=== PATIENT | female | born 1940 | race Caucasian/White ===

== ENCOUNTER 2020-05-30 14:52 | Outpatient (REF) | payer MEDICARE, SELFPAY ==
--- NOTE | ~2020-05-30 | MM_ITS ---
EXAMINATION: MM DIAGNOSTIC DIGITAL BREAST TOMOSYNTHESIS, BILATERAL US DIAGNOSTIC ULTRASOUND BREAST, RIGHT CLINICAL INFORMATION: Pain in fullness mid upper outer right breast. Due for yearly. The lifetime risk of breast cancer based on the Tyrer-Cuzick Model is 2%. COMPARISON: Mammography: 02/15/2016 TECHNIQUE: Digital breast tomosynthesis is performed in both the craniocaudal and mediolateral oblique views along with computer-aided detection (CAD). Synthesized 2D images are generated from the tomosynthesis. Additional right CC view is provided. Ultrasound right breast is targeted to the areas of clinical concern upper outer quadrant. Grayscale imaging and color Doppler are performed without and with harmonics. FINDINGS: The breasts are almost entirely fatty (ACR BI-RADS breast composition Category a). Background fibroglandular and stromal densities are stable. There is no interval mass or architectural abnormality or abnormal calcifications. There is no skin thickening or coarsening of the Tom's ligaments. No axillary adenopathy. No significant changes. Ultrasound demonstrates no cystic or solid mass or architectural abnormality or focal duct ectasia. No skin thickening or edema tracking in soft tissue planes. Results are discussed with the patient at time of visit. MM/MM tomosynthesis diagnostic BI IMPRESSION: 1. No mammographic evidence of malignancy or inflammatory changes. 2. Unremarkable right breast ultrasound.. ASSESSMENT: BI-RADS 1: Negative RECOMMENDATION: 1. Patient should be managed based on the clinical impression. If clinically indicated, further evaluation may be considered with surgical consult. Decision to proceed with biopsy should be based on clinical grounds and degree of clinical concern. 2. Otherwise, routine annual screening mammography. This patient's information was entered into a reminder system with a target due date for their next mammogram.
== END 2020-05-30 14:53 | disposition home or self-care (01) ==
LOC: HO.MAMMO 14:52
PROVIDERS: PCP Internal Medicine Geriatric Medicine; Visit Provider Internal Medicine Geriatric Medicine
DX: N63.11 Unspecified lump in the right breast, upper outer quadrant (principal)
CPT/HCPCS: 76642; 77062; 77066

== ENCOUNTER 2022-10-10 16:03 | Outpatient (REF) | payer MEDICARE, SELFPAY ==
[2022-10-10 18:54] LABS: Anion Gap 12 (12-20); Blood Urea Nitrogen 12 mg/dL (9-16); Calcium 9.3 mg/dL (8.4-10.2); Carbon Dioxide 27 mmol/L (22-29); Chloride 108 mmol/L (96-108); Estimated Glomerular Filt Rate 60; Glucose Random 79 mg/dL (60-115); Potassium 3.6 mmol/L (3.3-5.1); Sodium 143 mmol/L (135-145)
== END 2022-10-10 16:04 | disposition home or self-care (01) ==
LOC: HO.HHCL 16:03
PROVIDERS: Visit Provider Internal Medicine Geriatric Medicine
DX: R73.03 Prediabetes (principal)
CPT/HCPCS: 36415; 80048

== ENCOUNTER 2022-12-10 15:42 | Outpatient (AMB) | payer OTHER, SELFPAY ==
--- NOTE | 2022-12-10 15:46 | MHC.OFFVIS ---
Intake Vital Signs 12/10/22 15:53 Weight 140 lb BP 123/61 Blood Pressure Location Rt brachial Position Sitting Pulse 71 Intake Visit Reasons: Skin nodule on cheek Intake Note: This patient presents for an assessment for skin nodule on cheek. Patient c/o; reports increase in size. [employer] Required: No Accompanied by: Son Allergies naproxen [Naprosyn] Allergy (Unknown, Verified 02/14/19 00:00) Erythromycin Allergy (Unknown, Uncoded 02/14/19 00:00) Medication List - Last Reviewed 12/10/22 by JACKSON Garcia cholecalciferol (vitamin D3) (Vitamin D3) 50 mcg PO DAILY clonazepam 0.5 mg PO DAILY PRN fentanyl 25 mcg/hr 1 patch topical Q3D fluticasone propionate 50 mcg/actuation 1 spray intranasal DAILY oxycodone-acetaminophen 10-325 mg 1 tab PO QID PRN polyethylene glycol 3350 17 grams PO DAILY sertraline 25 mg PO DAILY sumatriptan succinate mg PO HPI Skin nodule on cheek HPI Details [age] year old female referred for a nodule on the cheek. She says that she has had this for about 4 years now. She has had pain on this area. She had wanted this removed in the past but she has had other things done as well because of multiple medical problems. She denies any changes the skin. [facility] Medical History (Updated 12/10/22 @ 16:02 by Edd Snyder MD) Nodule of cheek Chronic pain Surgical History (Updated 12/10/22 @ 15:55 by JACKSON Garcia) History of neck surgery History of back surgery History of section Family History (Updated 12/10/22 @ 15:53 by JACKSON Garcia) Other Cancer Social History Alcohol intake: never Patient Tobacco Use Status: Never used Tobacco Review of Systems Const Denies chills and Denies fever(s) Card Denies chest pain, Denies dyspnea and Reports dyspnea on exertion Resp Denies cough, Denies dyspnea and Reports dyspnea on exertion GI Denies hematochezia and Denies change in bowel habits Denies hematuria Musc Reports abnormal gait, Reports back pain, Reports myalgias, Reports arthralgias and Reports limited range of motion Neuro Reports abnormal gait, Denies focal weakness and Denies convulsions Psych Denies depression and Denies mood swings Physical Exam Const Other: Using a cane to ambulate, has poor balance General: comfortable and no acute distress Orientation/consciousness: patient oriented x3 HEENT Other: Right cheek with subcutaneous nodule, about 1 cm in size, mobile Neck Neck: Yes no lymphadenopathy Resp Auscultation: clear to auscultation bilaterally Cardio Rhythm: regular rhythm GI Palpation (GI): Soft to palpation, nontender and no guarding Neuro General: patient oriented x3 Assessment & Plan Assessment & Plan (1) Nodule of cheek: Code(s): K13.79 - Other lesions of oral mucosa Plan: She has what appears to be a subcutaneous nodule on her right cheek. This is very mobile. She wants this removed. She is very tender on the area so this will need to be done under some form of anesthesia. I explained the technique of excision under anesthesia. Discussed the risks including but not limited to bleeding, infections, poor healing, scar formation, as well as the benefits and alternatives. She says she understands and wants to proceed. Medications: New oxycodone-acetaminophen 10-325 mg 1 tab PO QID PRN clonazepam 0.5 mg PO DAILY PRN sertraline 25 mg PO DAILY sumatriptan succinate mg PO fluticasone propionate 50 mcg/actuation 1 spray intranasal DAILY cholecalciferol (vitamin D3) (Vitamin D3) 50 mcg PO DAILY polyethylene glycol 3350 17 grams PO DAILY fentanyl 25 mcg/hr 1 patch topical Q3D Coding Level of Care Code New Pt Level 3 (23483) Diagnoses Nodule of cheek K13.79
[2022-12-10 15:53] VITALS: BP 123/61; PULSE 71
== END 2022-12-10 16:04 | disposition home or self-care (01) ==
PROVIDERS: PCP Internal Medicine Geriatric Medicine; Visit Provider Surgery
DX: K13.79 Other lesions of oral mucosa (principal)
CPT/HCPCS: 99203

== ENCOUNTER → 2022-12-10 15:42 | Outpatient (BNVA) | payer OTHER, SELFPAY | PROVIDERS: PCP Internal Medicine Geriatric Medicine; Visit Provider Surgery ==

== ENCOUNTER 2022-12-26 09:23 | Day surgery (SDC) | payer OTHER, SELFPAY ==
[2022-12-18 13:24] VITALS: BMI 23.8
--- NOTE | 2022-12-25 10:24 | P.CONAN_ITS ---
Documented by User: Renetta Sandoval NP 12/25/22 10:26 HPI - Anesthesia Eval Consult details Narrative: 82yo F for Right Excision Cheek Mass Fentanyl patch for chronic pain PMFSH Active Problems Active Problems: All Active Problems (Updated 12/18/22 @ 13:24 by Shayna Robbins RN) Nodule of cheek (Acute) Chronic pain (Acute) Past Medical History Medical History (Updated 12/18/22 @ 13:24 by Shayna Robbins RN) Anxiety Migraine Nodule of cheek Chronic pain Family History Family History (Updated 12/10/22 @ 15:53 by JACKSON Garcia) Other Cancer Surgical History Surgical History (Updated 12/18/22 @ 13:24 by Shayna Robbins RN) History of neck surgery History of back surgery History of section Social History Social History (Updated 12/10/22 @ 15:56 by JACKSON Garcia) Household Members Other:: son Are you a primary infant caregiver to a significant other at home: No Do you presently have visiting nurse or other home services: No Alcohol intake: never Patient Tobacco Use Status: Former Tobacco user Quit Date: age 67 Tobacco use type: Cigarette Years Smoked: 20 Use of substances other than those prescribed or required for medical reasons: No Have you been hit, kicked, punched, or otherwise hurt by someone within the past year? If so, by whom?: No Are you DNR?: No Advance Directives Information Provided: Yes (as above noted-brochure mailed) Advance Directives on File: No Recently lost weight without trying: No Eating poorly because of decreased appetite: No Nutrition Risks: Surgical patient >75years Poor oral hygiene: No (upper full & lower partial denture) Meds Allergies Allergy/AdvReac Type Severity Reaction Status Date / Time erythromycin base Allergy Intermediate Hives Verified 12/26/22 10:01 naproxen [Naprosyn] Allergy Mild Stomach Verified 12/26/22 10:01 Upset Home Medications Medication Instructions Recorded Confirmed Last Taken Type cholecalciferol (vitamin D3) 50 50 mcg PO DAILY 12/10/22 12/18/22 Unknown History mcg (2,000 unit) tablet (Vitamin D3) clonazepam 0.5 mg tablet 0.5 mg PO BEDTIME PRN Anxiety 12/10/22 12/18/22 Unknown History fentanyl 25 mcg/hr transdermal 1 patch topical Q3D 12/10/22 12/18/22 12/24/22 History patch fluticasone propionate 50 1 spray intranasal DAILY 12/10/22 12/18/22 Unknown History mcg/actuation nasal spray,suspension oxycodone-acetaminophen 10 mg-325 1 tab PO QID PRN Pain 12/10/22 12/18/22 Unknown History mg tablet polyethylene glycol 3350 17 17 g PO DAILY 12/10/22 12/18/22 Unknown History gram/dose oral powder sertraline 25 mg tablet 25 mg PO DAILY 12/10/22 12/18/22 Unknown History sumatriptan succinate 25 mg tablet 25 mg PO DAILY PRN Migraine 12/10/22 12/18/22 Unknown History Headache Exam Exam Date and Time: December 25, 2022 1024 Height,Weight and Vital Signs: Height 5 ft 4.25 in Weight 63.503 kg Pertinent Lab Results Pertinent Lab Results: Laboratory Tests 06/22/18 10/10/22 16:33 16:05 WBC 9.2 Hgb 14.7 Hct 42.8 Plt Count 182 Sodium 143 Potassium 3.6 Chloride 108 Carbon Dioxide 27 BUN 12 Creatinine 0.90 Assessment and Plan Assessment Anesthesia Assessment: Chart Reviewed Documented by User: Armando Johnson MD 12/26/22 13:04 [facility] Past Medical History Medical History (Updated 12/18/22 @ 13:24 by Shayna Robbins RN) Anxiety Migraine Nodule of cheek Chronic pain Family History Family History (Updated 12/10/22 @ 15:53 by JACKSON Garcia) Other Cancer Family history of problems with anesthesia: No Surgical History Surgical History (Updated 12/18/22 @ 13:24 by Shayna Robbins RN) History of neck surgery History of back surgery History of section History of Problems with Anesthesia: No Social History Social History (Updated 12/10/22 @ 15:56 by JACKSON Gracia) Household Members Other:: son Are you a primary infant caregiver to a significant other at home: No Do you presently have visiting nurse or other home services: No Alcohol intake: never Patient Tobacco Use Status: Former Tobacco user Quit Date: age 67 Tobacco use type: Cigarette Years Smoked: 20 Use of substances other than those prescribed or required for medical reasons: No Have you been hit, kicked, punched, or otherwise hurt by someone within the past year? If so, by whom?: No Are you DNR?: No Advance Directives Information Provided: Yes (as above noted-brochure mailed) Advance Directives on File: No Recently lost weight without trying: No Eating poorly because of decreased appetite: No Nutrition Risks: Surgical patient >75years Poor oral hygiene: No (upper full & lower partial denture) Meds Allergies Allergy/AdvReac Type Severity Reaction Status Date / Time erythromycin base Allergy Intermediate Hives Verified 12/26/22 10:01 naproxen [Naprosyn] Allergy Mild Stomach Verified 12/26/22 10:01 Upset Home Medications Medication Instructions Recorded Confirmed Last Taken Type cholecalciferol (vitamin D3) 50 50 mcg PO DAILY 12/10/22 12/18/22 Unknown History mcg (2,000 unit) tablet (Vitamin D3) clonazepam 0.5 mg tablet 0.5 mg PO BEDTIME PRN Anxiety 12/10/22 12/18/22 Unknown History fentanyl 25 mcg/hr transdermal 1 patch topical Q3D 12/10/22 12/18/22 12/24/22 History patch fluticasone propionate 50 1 spray intranasal DAILY 12/10/22 12/18/22 Unknown History mcg/actuation nasal spray,suspension oxycodone-acetaminophen 10 mg-325 1 tab PO QID PRN Pain 12/10/22 12/18/22 Unknown History mg tablet polyethylene glycol 3350 17 17 g PO DAILY 12/10/22 12/18/22 Unknown History gram/dose oral powder sertraline 25 mg tablet 25 mg PO DAILY 12/10/22 12/18/22 Unknown History sumatriptan succinate 25 mg tablet 25 mg PO DAILY PRN Migraine 12/10/22 12/18/22 Unknown History Headache Exam Airway Mallampati Class: II TM Dist: >3cm Neck ROM: Full Denture: Upper Partial: Lower Heart: ok Lungs: ok Assessment and Plan Assessment Anesthesia Assessment: Anesthesia Plan Discussed Final Anesthetic Review Family History of Problems with Anesthesia: No History of Problems with Anesthesia: No NPO: Yes ASA Class: III Final Preanesthetic Review: No Changes in Pt Med Stat, Meds/Allgs Chart Reviewed, Consent Obtained/Reviewed and Anes Risks/Benef Reviewed Patient Risk: Intermediate Procedure Risk: Low Anesthetic Plan Anesthetic Plan: MAC: and Agree w/ Assess. and Plan Disposition: Standard PACU
[2022-12-26 09:29] VITALS: BP 133/79; PULSE 89; RESP 18; TEMP 36.1; O2SAT 96
[2022-12-26] MEDS: Lactated Ringers 1,000 ML 100 ML IVCONT (10:13)
--- NOTE | 2022-12-26 12:23 | MHC.SHP ---
Pre-Procedural Eval Section A Date of Service: 12/26/22 The patient is an INPATIENT: No Changes since office visit: No Cold of Flu in the past 2 weeks, No New Medical Problems, No Changes in Medication and No Patient answered all questions The History & Physical has been completed within 30 days and I have reviewed it.: Yes Section B Chief Complaint: Other lesions of oral mucosa Allergies: Allergies Allergy/AdvReac Type Severity Reaction Status Date / Time erythromycin base Allergy Intermediate Hives Verified 12/26/22 10:01 naproxen [Naprosyn] Allergy Mild Stomach Verified 12/26/22 10:01 Upset Plan I have reviewed the history and physical and performed a pertinent physical examination on my patient. No changes have occurred unless specified. Time Spent With Patient Time: Total time managing care of this patient today ____ minutes.
--- NOTE | 2022-12-26 13:43 | W.PM.OPN ---
Operative Note Operative Note Date of Service: 12/26/22 Narrative: Preop diangosis: right cheek subcutaneous nodule Postop diagnosis: same, cystic in nature Procedure: Exc of subcutaneous nodule right cheek under MAC Surgeon: Edd Snyder MD The patient is a 82F with a subcutaneous nodule with pain and tenderness. She wanted this removed. She understood the technique of the planned procedure as well as the risks, benefits and alternatives. She was brought to the OR and palced supine with the head turned to the left under MAC. The area of the nodule was prepped and draped. Lidocaine 1% was used for local anesthesia. I made an incision on the skin overlying the mass using a blade 15. This was carried down through the full thickness of the skin and subcutaneous fat. I palpated for the mass to localize this. I eventually viualized this mass. This appeared cystic, about .6 cm surrounded by indurated fat. This was intimately adherent to a nerve. I carefull this with sharp dissection until this was delivered and sent as a specimen. I irrigated and closed the incision with nylo 5-0 interrupted sutures. Dressings were applied. The procedure was completed. She tolerated the procedure well. There were no immediate complications. EBL was less than 5 cc. She was transferred to the PACU with stable VS.
[2022-12-26 13:59] VITALS: BP 176/94; PULSE 78; RESP 18; TEMP 36.8; O2SAT 96
[2022-12-26] MEDS: Acetaminophen 325 MG TABLET 650 MG PO (14:04)
[2022-12-26] MEDS: oxyCODONE HCl Immed Release 5 MG TABLET PO (14:04)
[2022-12-26 14:14] VITALS: BP 171/92; PULSE 74; RESP 20; TEMP 36.5; O2SAT 98
== END 2022-12-26 14:48 | disposition home or self-care (01) ==
PROVIDERS: PCP Internal Medicine Geriatric Medicine; Visit Provider Surgery
PROC: (CPT 21011; principal; 2022-12-26 10:50)
DX: K13.79 Other lesions of oral mucosa (principal); D11.9 Benign neoplasm of major salivary gland, unspecified; G89.29 Other chronic pain; G43.909 Migraine, unspecified, not intractable, without status migrainosus; F41.9 Anxiety disorder, unspecified; Z79.51 Long term (current) use of inhaled steroids; Z79.899 Other long term (current) drug therapy; Z88.8 Allergy status to other drugs, medicaments and biological substances; Z87.891 Personal history of nicotine dependence
CPT/HCPCS: 21011; 88305; J2704; J2795

== ENCOUNTER → 2022-12-26 09:23 | Outpatient (BNV) | payer OTHER, SELFPAY | PROVIDERS: PCP Internal Medicine Geriatric Medicine; Visit Provider Surgery | DX: K13.79 Other lesions of oral mucosa (principal) | CPT/HCPCS: 21013 ==

== ENCOUNTER 2023-04-29 16:09 | Outpatient (REF) | payer OTHER, SELFPAY | END 2023-04-29 16:10 | disposition home or self-care (01) | LOC: HO.HHCL 16:09 | PROVIDERS: Visit Provider Internal Medicine Geriatric Medicine | DX: Z13.89 Encounter for screening for other disorder (principal) ==

== ENCOUNTER 2023-06-19 10:51 | Outpatient (REF) | payer OTHER, SELFPAY ==
[2023-06-20 03:44] LABS: HBS Num1 0.08 mIU/mL (0-7.99); HBc Num1 0.07 S/CO (0.00-0.79); HBsAGNum1 0.26 S/CO (0.00-0.99); Hepatitis B Core Antibody Nonreactive (Nonreactive); Hepatitis B Surface Antigen Negative (Negative); ~HepC Num1 0.17 S/CO (0.00-0.79); ~Hepatitis B Surface Antibody NONREACTIVE (Nonreactive); ~Hepatitis C Antibody Nonreactive (Nonreactive)
[2023-07-03 19:54] LABS: FIB-ALT 11 U/L (6-29); FIB-Alpha-2-Macroglobulin 276 mg/dL (106-279); FIB-Apolipoprotein A1 171 mg/dL (101-198); FIB-GGT 35 U/L (3-65); FIB-Haptoglobin 57 mg/dL (43-212); FIB-Total Bilirubin 0.5 mg/dL (0.2-1.2); Liver Fibrosis Score 0.57; Liver Fibrosis Stage F2; Nec Inflam Act Grade A0; Nec Inflam Act Score 0.05
== END 2023-06-19 10:52 | disposition home or self-care (01) ==
LOC: HO.HHCL 10:51
PROVIDERS: Visit Provider Internal Medicine Geriatric Medicine
DX: K74.69 Other cirrhosis of liver (principal)
CPT/HCPCS: 36415; 81596; 86704; 86706; 86803; 87340

== ENCOUNTER 2023-09-23 13:35 | Outpatient (REF) | payer OTHER, SELFPAY ==
--- NOTE | ~2023-09-23 | MM_ITS ---
EXAMINATION: BONE DENSITOMETRY CLINICAL INDICATION: Osteoporosis. COMPARISON: This is the patient's baseline examination. TECHNIQUE: Using a [employer] DXA System (software version: 13.1) manufactured by [employer], dual-energy x-ray absorptiometry was performed of the lumbar spine and right hip. The images are of good technical quality. Summary results are attached. FINDINGS: RIGHT FEMUR, NECK: BMD 0.698 g/cm2, Z-score -0.9, T-score -2.4, osteopenia. RIGHT FEMUR, TOTAL: BMD 0.594 g/cm2, Z-score -1.9, T-score -3.3, osteoporosis. AP SPINE L1-L2 (excluding L3 and L4): The data of L1-L4 has been changed to exclude the L3 and L4 vertebral bodies, because degenerative sclerosis at these levels may cause overestimation of lumbar spine density. BMD 0.926 g/cm2, Z-score -0.6, T-score -2.0, osteopenia. IDENTIFIED RISK FACTORS: Early menopause, family history (parent hip fracture), height loss, history of fracture (adult), hysterectomy, osteoporosis, secondary osteoporosis. HISTORY OF FRACTURE: Hip, other. MEDICATIONS: Vitamin D. MM/XR DEXA axial skeleton IMPRESSION: 1. DIAGNOSIS: Severe osteoporosis based on the lowest T-score value of -3.3 in the total femur and history of fracture of hip applying World Health Organization criteria. 2. 10-YEAR FRACTURE RISK PREDICTION, FRAX: According to the guidelines, FRAX calculation should only be performed on patients in the osteopenia bone density category. Therefore, FRAX was not performed on this patient. 3. Treatment Recommendations: NOF guidelines recommend consideration for treatment in postmenopausal women and men age 50 and older presenting with the following: -A hip or vertebral (clinical or morphometric) fracture. -T-score less than or equal to -2.5 at the femoral neck or spine after appropriate evaluation to exclude secondary causes. -Low bone mass at the hip or spine and a 10-year fracture probability by FRAX of greater than or equal to 3% for hip fracture or greater than or equal to 20% for major osteoporotic fracture based on the [place] adapted WHO algorithm. 4. Other Recommendations: All treatment decisions require clinical judgment and consideration of individual patient factors, including patient preferences, comorbidities, previous drug use, risk factors not captured in the FRAX model (e.g. frailty, falls, vitamin D deficiency, increased bone turnover, interval significant decline in bone density) and possible under or overestimation of fracture risk by FRAX. Additional medical evaluation for secondary cause of low bone mineral density may be appropriate. FUTURE SCAN RECOMMENDATION: People with diagnosed cases of osteoporosis or at high risk for fracture should have regular bone mineral density tests. For patients eligible for Medicare, routine testing is allowed once every 2 years. The testing frequency can be increased to one year for patients who have rapidly progressing disease, those who are receiving or discontinuing medical therapy to restore bone mass, or have additional risk factors.
== END 2023-09-23 13:36 | disposition home or self-care (01) ==
LOC: HO.MAMMO 13:35
PROVIDERS: PCP Internal Medicine Geriatric Medicine; Visit Provider Internal Medicine Geriatric Medicine
DX: Z13.820 Encounter for screening for osteoporosis (principal); Z78.0 Asymptomatic menopausal state
CPT/HCPCS: 77080